=== PATIENT | female | born 1935 | race Caucasian/White ===

== ENCOUNTER 2020-12-04 10:28 | Emergency (ER) | payer MEDICARE | END 2020-12-04 11:28 | disposition home or self-care (01) | LOC: EDH 10:28 | DX: S20.352A Superficial foreign body of left front wall of thorax, initial encounter (principal); X58.XXXA Exposure to other specified factors, initial encounter; Y93.89 Activity, other specified; Y92.89 Other specified places as the place of occurrence of the external cause; Y99.8 Other external cause status | CPT/HCPCS: 71045 ==

== ENCOUNTER → 2021-03-15 | Outpatient (CLI) | payer MEDICARE | END | disposition home or self-care (01) | LOC: RAH 11:01 | PROVIDERS: ATTEND Internal Medicine | DX: G31.9 Degenerative disease of nervous system, unspecified (principal); F03.90 Unspecified dementia, unspecified severity, without behavioral disturbance, psychotic disturbance, mood disturbance, and anxiety | CPT/HCPCS: 70450 ==

== ENCOUNTER → 2024-01-17 | Outpatient (CLI) | payer MEDICARE | END | disposition home or self-care (01) | LOC: SHCH 13:34 | PROVIDERS: ATTEND Student in an Organized Health Care Education/Training Program | DX: I08.8 Other rheumatic multiple valve diseases (principal); I48.0 Paroxysmal atrial fibrillation | CPT/HCPCS: 93306 ==

== ENCOUNTER 2025-08-13 15:12 | Emergency (ER) | payer MEDICARE ==
[~2025-08-13] VITALS: Ht 157.5 cm; Wt 55.8 kg
[2025-08-13] MEDS ORDERED: AMOX1TAB16 PO (16:43)
--- NOTE | 2025-08-13 16:44 | HMCIMG ---
EXAM: CR right Hand, 3 View. CLINICAL HISTORY: r/o fb vs fx COMPARISON: None provided. FINDINGS: BONES: Generalized osteopenia JOINTS: Degenerative changes SOFT TISSUES: No radiopaque foreign body IMPRESSION: 1. No radiopaque foreign body 2. Generalized osteopenia 3. Degenerative changes /[place]
--- NOTE | 2025-08-13 16:45 | ERN ---
General Chief Complaint: Hand Problem/Injury Stated Complaint: LT HAND INJURY Time Seen by MD: 15:18 Time Seen by Midlevel: 15:18 Source: patient History of Present Illness Initial Comments The patient is an 89-year-old with a past medical history of dementia being brought in by daughter for evaluation of left hand swelling and redness that they noticed this morning. Patient reported a fever so they decided to bring her in further evaluation. Family noticed what appears to be an insect bite to the left hand and are concerned this may be the start of an infection. Allergies: Coded Allergies: No Known Allergies (Unverified Allergy, Unknown, 08/13/25) Past Medical History Past Medical History: A-Fib, Dementia Past Surgical History: None ROS Dictation CONSTITUTIONAL: Negative except for HPI HEAD/FACE: Negative except for HPI EENT: Negative except for HPI RESPIRATORY: Negative except for HPI GASTROINTESTINAL/ABDOMINAL: Negative except for HPI GENITOURINARY: Negative except for HPI MUSCULOSKELETAL: Negative except for HPI INTEGUMENTARY: Negative except for HPI NEUROLOGICAL/PSYCH: Negative except for HPI HEMATOLOGIC/LYMPHATIC: Negative except for HPI All Systems Negative, Except as noted above. 13 point review of systems assessed and all negative except for above. Physical Exam Physical Exam Dictation PHYSICAL EXAM: GENERAL: alert,, awake oriented x 3 HEENT: EOMI, Sclera non icteric, moist mucosa NECK: Supple, no JVD, trachea midline LUNGS: Clear breath sounds bilaterally. No wheezes HEART: Regular rate and rhythm. Normal S1 and S2, without murmurs ABD: Abdomen soft, nontender. Bowel sounds present EXT: There is erythema to the dorsal aspect of the left hand with what appears to be insect bites overlying the region NEURO: Alert and oriented to person, follows commands MDM MDM: Differential diagnosis: Cellulitis, erysipelas, foreign body retained There are no social concerns with this patient. Prescription drug management Prescriptions will include: Augmentin Medical management and examination interpretation discussions were had by me with other qualified healthcare professionals as indicated for the patient's care. ED Course Orders Procedure Category Date Status Time Hand 3+Vws Lt RAD 08/13/25 Taken 15:27 Dexamethasone 4mg/Ml PHA 08/13/25 Complete 1ml Vial (Dexametha 15:30 Ceftriaxone 1g Vial PHA 08/13/25 Complete (Rocephine 1g Inj) 15:30 Acetaminophen 325 Tab PHA 08/13/25 Complete (Tylenol 325mg Tab 16:30 Current Medications Medications (Trade) Dose Ordered Sig/Da Route PRN Reason Start Time Stop Time Status Last Admin Dose Admin Acetaminophen (TYLenol 325MG TAB) 650 mg ONCE ONCE PO 08/13/25 16:30 08/13/25 16:31 DC 08/13/25 16:37 Ceftriaxone Sodium (ROCEphine 1G INJ) 1 gm ONCE ONCE IM 08/13/25 15:30 08/13/25 15:33 DC 08/13/25 16:36 Dexamethasone Sodium Phosphate (dexaMETHasone 4MG/ML 1ML VIAL) 6 mg ONCE ONCE IM 08/13/25 15:30 08/13/25 15:33 DC 08/13/25 16:36 Vital Signs Date Time Temp Pulse Resp B/P (MAP) Pulse Ox O2 Delivery O2 Flow Rate FiO2 08/13/25 15:19 100.8 86 20 119/51 99 Room Air DX & DISP Disposition: Discharge Departure Impression: Primary Impression: Cellulitis of left hand Condition: Stable Scripts Amoxicillin/Potassium Clav (Amox Tr-K Clv 875-125 mg Tab) 875 Mg-125 Mg Tablet 1 EACH PO BID for 7 Days, #14 TAB 0 Refills Prov: LIBBY BARRON 08/13/25 Additional Instructions: Your x-ray does not show any evidence of a retained foreign body or injury to the bone. Based on your physical examination this appears to be the start of a superficial skin infection. You were given antibiotics and steroids in the emergency department. I have given you a prescription for oral antibiotics for outpatient management. If symptoms do not improve over the next 24-48 hours please return to the emergency department for further evaluation. Referrals: DONNA ELISE MD (PCP) Time of Disposition: 16:43 I have reviewed the case, and I agree with, Diagnosis and Plan I performed the substantive portion of the visit. I have reviewed and personally made and approve the management plan that is documented in the note b y myself or the [facility]. I acknowledge for responsibility for the patient's management plan. LIBBY BARRON Aug 13, 2025 16:45
[2025-08-13 16:49] VITALS: BP 115/59; PULSE 85; RESP 20; TEMP 99; O2SAT 99
[2025-08-13 16:50] VITALS: TEMP 99
== END 2025-08-13 16:51 | disposition home or self-care (01) ==
LOC: EDH 15:12
DX: L03.114 Cellulitis of left upper limb (principal); I48.91 Unspecified atrial fibrillation; F03.90 Unspecified dementia, unspecified severity, without behavioral disturbance, psychotic disturbance, mood disturbance, and anxiety
CPT/HCPCS: 99284; 73130; 96372 ×2; J1100; J0696